=== PATIENT | female | born 1980 | race Two or more races ===

== ENCOUNTER 2018-11-15 19:33 | Emergency (ER) | payer OTHER ==
[~2018-11-15] VITALS: Ht 152.4 cm; Wt 83.5 kg
[2018-11-15] MEDS ORDERED: LEVE750T41 PO (20:06)
[2018-11-15] MEDS ORDERED: HYDR-3164 PO (20:59)
[2018-11-15] MEDS ORDERED: fentaNYL PF VIAL 100 MCG/2 ML VIAL IM ONE (21:00)
--- NOTE | 2018-11-15 21:00 | PHYS DOC ---
Past Medical History Past Medical History: Seizure Past Surgical History: Tubal ligation Alcohol Use: None Drug Use: None Adult General Chief Complaint Chief Complaint: MECHANICAL FALL HPI HPI Patient is a 38 year old [f__sex] who presents with [] Review of Systems Review of Systems Constitutional: Denies fever or chills [] Eyes: Denies change in visual acuity, redness, or eye pain [] HENT: Denies nasal congestion or sore throat [] Respiratory: Denies cough or shortness of breath [] Cardiovascular: No additional information not addressed in HPI [] GI: Denies abdominal pain, nausea, vomiting, bloody stools or diarrhea [] : Denies dysuria or hematuria [] Musculoskeletal: Denies back pain or joint pain [] Integument: Denies rash or skin lesions [] Neurologic: Denies headache, focal weakness or sensory changes [] Endocrine: Denies polyuria or polydipsia [] All other systems were reviewed and found to be within normal limits, except as documented in this note. Current Medications Current Medications Current Medications Medications (Trade) Dose Ordered Sig/Elvira Start Time Stop Time Status Last Admin Dose Admin Fentanyl Citrate (Fentanyl 2ml Vial) 75 mcg 1X ONCE 11/15/18 21:00 11/15/18 21:01 Allergies Allergies Allergies Coded Allergies Type Severity Reaction Last Updated Verified No Known Drug Allergies 11/15/18 No Physical Exam Physical Exam Constitutional: Well developed, well nourished, no acute distress, non-toxic appearance. [] HENT: Normocephalic, atraumatic, bilateral external ears normal, oropharynx moist, no oral exudates, nose normal. [] Eyes: PERRLA, EOMI, conjunctiva normal, no discharge. [] Neck: Normal range of motion, no tenderness, supple, no stridor. [] Cardiovascular:Heart rate regular rhythm, no murmur [] Lungs & Thorax: Bilateral breath sounds clear to auscultation [] Abdomen: Bowel sounds normal, soft, no tenderness, no masses, no pulsatile masses. [] Skin: Warm, dry, no erythema, no rash. [] Back: No tenderness, no CVA tenderness. [] Extremities: No tenderness, no cyanosis, no clubbing, ROM intact, no edema. [] Neurologic: Alert and oriented X 3, normal motor function, normal sensory function, no focal deficits noted. [] Psychologic: Affect normal, judgement normal, mood normal. [] Current Patient Data Vital Signs Vital Signs Date Time Temp Pulse Resp B/P (MAP) Pulse Ox O2 Delivery O2 Flow Rate FiO2 11/15/18 19:58 98.1 90 26 164/97 (119) 98 Room Air 98.1 EKG EKG [] Radiology/Procedures Radiology/Procedures [] Course & Med Decision Making Course & Med Decision Making Pertinent Labs and Imaging studies reviewed. (See chart for details) [] Dragon Disclaimer Dragon Disclaimer This electronic medical record was generated, in whole or in part, using a voice recognition dictation system. Departure Departure Impression: Primary Impression: Fall Additional Impression: Distal radius fracture, left Disposition: HOME, SELF-CARE Condition: STABLE Referrals: NO PCP (PCP) JOE ESPINOZA MD Patient Instructions: Arm Sling Use, [id number], Fall Prevention and Home Safety, [id number], Wrist Fracture, [id number]-wp-[id number] Scripts Hydrocodone/Apap 5-325 (NORCO 5-325 TABLET) 1 Each Tablet 1 TAB PO PRN Q6HRS PRN for PAIN, #14 TAB 0 Refills Prov: DEBORAH NANCE DO 11/15/18 Problem Qualifiers Primary Impression: Fall Encounter type: initial encounter Qualified Codes: W19.XXXA - Unspecified fall, initial encounter Additional Impression: Distal radius fracture, left Encounter type: initial encounter Fracture type: closed Fracture morphology : other fracture Qualified Codes: S52.592A - Other fractures of lower end of left radius, initial encounter for closed fracture DEBORAH NANCE DO Nov 15, 2018 21:00
[2018-11-15] MEDS ORDERED: HYDROcodone/APAP 5/325MG 1 TAB TABLET PO ONE (21:30)
[2018-11-15 21:34] VITALS: BP 134/74
--- NOTE | 2018-11-16 00:32 | RAD ---
Left wrist 2 views. HISTORY: Fell on ice, left wrist pain 2 views were taken of the left wrist. There is a comminuted angulated fracture of the distal radius. The fracture extends to the articular surface of the distal radius. IMPRESSION: 1. Fracture distal left radius. Electronically signed by: Mason Farris MD (11/16/2018 12:28 AM) [employer]
[2018-11-21] MEDS ORDERED: OXYC1TAB15 PO (12:52)
== END 2018-11-15 21:33 | disposition home or self-care (01) ==
LOC: ER 19:33
DX: S52.592A Other fractures of lower end of left radius, initial encounter for closed fracture (principal); W00.2XXA Other fall from one level to another due to ice and snow, initial encounter; Y93.89 Activity, other specified; Y92.89 Other specified places as the place of occurrence of the external cause; Y99.8 Other external cause status
CPT/HCPCS: 29105; 73100; 96372; 99283; J3010

== ENCOUNTER 2018-11-21 08:20 | Day surgery (SDC) | payer OTHER ==
[~2018-11-21] VITALS: Ht 154.9 cm; Wt 90.7 kg
[~2018-11-21 08:20] MED LIST: HYDR-3164 PO; LEVE750T41 PO
[2018-11-21] MEDS ORDERED: IV RINGERS,LACTATED 1000ML 1,000 ML IV SCH (08:29)
[2018-11-21] MEDS ORDERED: MIDAZOLAM HCL/PF 2 MG/2 ML VIAL. IV PRN (08:30)
[2018-11-21] MEDS ORDERED: LIDOCAINE 1% PF 2 ML VIAL. ID PRN (08:30)
[2018-11-21] MEDS ORDERED: fentaNYL PF VIAL 100 MCG/2 ML VIAL IV PRN (08:30)
[2018-11-21] MEDS ORDERED: LIDOCAINE 2% PF 5 ML VIAL. ONE (09:44)
[2018-11-21] MEDS ORDERED: fentaNYL PF VIAL 100 MCG/2 ML VIAL ONE (09:44)
[2018-11-21] MEDS ORDERED: DEXAMETHASONE SOD PHOS 20 MG/5 ML VIAL. ONE (09:44)
[2018-11-21] MEDS ORDERED: PROPOFOL 20 ML IV ONE (09:44)
[2018-11-21] MEDS ORDERED: MIDAZOLAM HCL/PF 2 MG/2 ML VIAL. ONE (09:44)
[2018-11-21] MEDS ORDERED: ONDANSETRON PF 4 MG/2 ML VIAL. ONE (09:44)
[2018-11-21] MEDS ORDERED: FAMOTIDINE 20 MG/2 ML VIAL ONE (09:44)
[2018-11-21] MEDS ORDERED: BUPIVACAINE MPF 0.5% 30 ML VIAL. ONE (10:36)
[2018-11-21 10:57] LABS: U PREG PATIENT NEGATIVE (NEG)
[2018-11-21] MEDS ORDERED: SEVOFLURANE 31 TO 60 MINUTES. IH ONE (11:11)
[2018-11-21] MEDS ORDERED: PROCHLORPERAZINE 10 MG/2 ML VIAL. ONE (11:25)
[2018-11-21] MEDS ORDERED: MORPHINE SULFATE 4 MG/ML VIAL. ONE (11:26)
[2018-11-21] MEDS ORDERED: PROCHLORPERAZINE 10 MG/2 ML VIAL. IV PRN (11:35)
[2018-11-21] MEDS: fentaNYL PF VIAL 100 MCG/2 ML VIAL IV PRN ×2 (11:45→12:17)
[2018-11-21] MEDS ORDERED: MORPHINE SULFATE 2 MG/ML VIAL. IV PRN (11:45)
[2018-11-21] MEDS ORDERED: MORPHINE SULFATE 4 MG/ML VIAL. IV PRN (11:48)
[2018-11-21] MEDS ORDERED: oxyCODONE/APAP 5/325 1 TAB TABLET PO ONE (12:15)
--- NOTE | 2018-11-21 12:51 | DISCH ---
DISCHARGE INSTRUCTIONS Condition on Discharge Condition on Discharge: Stable Activity After Discharge Activity Instructions for Disc: Other, see below (fine motor use of left hand only no hard grasping lifting) Diet after Discharge Diet after Discharge: Regular Wound Incision Care Wound/Incision Care: Ice to area for comfort, Keep wound elevated, Do not change dressing Contacting the DRJennifer after DC Call your doctor for: Concerns you may have Follow-Up Follow up with: Camacho 1 week JOE ESPINZOA MD Nov 21, 2018 12:51
[2018-11-21] MEDS ORDERED: OXYC1TAB15 PO (12:52)
[2018-11-21 13:09] VITALS: BP 138/62
--- NOTE | 2018-11-21 14:18 | PDOC4 ---
Operative Note Operative Note Date of surgery: 11/21/2018 Preoperative diagnosis: Displaced intra-articular left distal radius fracture Postoperative diagnosis: Same Operative procedure: Operative reduction internal fixation 2 part intra- articular distal radius fracture with locking plate screw fixation Surgeon: Camacho Anesthesia: GenJennifer Estimated blood loss: 5 mL Competitions: None Operative indications: Patient is a 38-year-old female evaluated yesterday in clinic in follow-up from the emergency department where she states sustained a fall on the ice with the above injury. I gone over with her the malalignment at the joint surface and angulation that requires operative treatment as I do not expect acceptable maintenance of reduction even with closed reduction. We talked about risks benefits postoperative course of surgery including the possibility of infection nerve or blood vessel damage nonhealing stiffness medical or other anesthetic complications. And even under the best of circumstances with near anatomic alignment some stiffness and aching related pain may be the case chronically. All her questions were answered she wishes to proceed with surgical evaluation and treatment. Operative text: Patient was identified procedure verified patient placed in the supine position on the operating table. After adequate amounts of general anesthesia were administered the left upper extremity was prepped and draped in standard sterile fashion and after timeout was performed patient procedure identified exsanguinated by Esmarch bandage and tourniquet was inflated to 250 mmHg. A standard Han volar approach was carried out to the distal radius flexor carpi radialis was taken medially median nerve protected and subperiosteal dissection was carried out reduction was carried out under fluoroscopic guidance and a Rere DVR cross lock distal radius locking plate was selected short and narrow based on her anatomy. Initial positioning with a nonlocking shaft screw in the sliding hole allowed optimal positioning an anatomic reduction of the fracture site distal screws were placed first in the styloid and working ulnarly all under fluoroscopic guidance to ensure reduction no penetration into the joint surface and proper length of screws. Proximal locking screws were then placed and a combination of additional nonlocking and locking screws on the shaft to further supplement fixation. Near anatomic reduction was noted under multiple fluoroscopic views with excellent hardware placement. Thorough irrigation carried out normal saline solution subcutaneous closure with buried Vicryl suture skin closure with subcuticular Monocryl Steri- Strips and Mastisol a well-padded volar splint was placed the fingers were noted be warm pink find deflation of the tourniquet patient was returned recovery room in stable condition having tolerated procedure well JOE ESPINOZA MD Nov 21, 2018 14:18
== END 2018-11-21 13:29 | disposition home or self-care (01) ==
LOC: SURG 08:20
PROVIDERS: ATTEND Orthopaedic Surgery
DX: S52.572A Other intraarticular fracture of lower end of left radius, initial encounter for closed fracture (principal); Z98.890 Other specified postprocedural states; Z83.3 Family history of diabetes mellitus; Z72.89 Other problems related to lifestyle; Z79.899 Other long term (current) drug therapy; W00.0XXA Fall on same level due to ice and snow, initial encounter; Y93.89 Activity, other specified; Y92.89 Other specified places as the place of occurrence of the external cause; Y99.8 Other external cause status
CPT/HCPCS: 25608; 76000; 81025; A7015; C1713; J0696; J0780; J1100; J2001; J2250; J2270; J2405; J2704; J3010; J3490